=== PATIENT | female | born 1985 | race Caucasian/White ===

== ENCOUNTER → 2017-05-13 | Outpatient (CLI) | payer MEDICAID ==
[~2017-05-13] MED LIST: ABILIFY2 MG PO; ACETAMINOPHEN500 M3 PO; ACYCLOVIR800 MG PO; ALLEGRA 180MG180 MG OR; ALLERGY MED PO; ATIVAN0.5 MG NG; BENTYL10 MG OR; BENZTROPINE 1MG1 MG PO; BENZTROPINE1 MG PO; BROMFED DM 480480 ML PO; BUSPIRONE HCL10 MG PO; CETIRIZINE10 MG PO; CHLORPROMAZINE25 MG PO; CIPRO 500MG TA500 MG PO; CIPROFLOXACIN500 M2 PO; CIPROFLOXACIN500 MG PO; CLARITIN 10MG T10 MG PO; CYCLOBENZAPRINE10 M1 PO; CYCLOBENZAPRINE10 M3 PO; CYCLOBENZAPRINE10 MG PO; CYMBALTA60 MG PO; DEPAKOTE ER250 MG PO; DICLOFENAC 50MG50 MG PO; DICYCLOMINE HYD20 MG PO; DOXYCYCLINE MO100 MG PO; EC NAPROSYN500 MG PO; FERATAB300 MG PO; FERROUS GLUCON324 MG PO; FERROUS SULFAT325 M2 PO; FIORICET1 CAP PO; FLAGYL 500MG.500 MG PO; FLAGYL500 MG PO; FLEXERIL10 MG PO; FLUOXETINE20 MG PO; FOLBIC RF1 TAB PO; FOLIC ACID 1MG T1 MG PO; HYDROCODONE-APA1 TA1 PO; HYDROCODONE1 TABLET PO; HYOSCYAMINE0.125 M1 SL; IMITREX100 MG PO; INDOCIN25 MG PO; IRON TABLETS325 MG PO; KEFLEX 500MG.500 MG PO; KEPPRA 500 MG500 MG PO; KEPPRA500 MG PO; KETOROLAC 10MG10 MG PO; LEVAQUIN500 MG PO; LIBRAX 5 MG-2.51 CAP PO; LORATADINE 10MG10 M1 PO; LORTAB 5/500 501 TAB PO; MACROBID 100MG100 MG PO; MECLIZINE HYDRO25 MG PO; MELOXICAM15 MG PO; METHYLPRED DP4 MG PO; METOCLOPRAMIDE10 M2 PO; MONISTAT 7 COM1 EACH VG; NAPROSYN 500MG500 MG PO; NEXIUM40 MG PO; OMNICEF 300 MG300 MG PO; ONDANSETRON HYDR4 MG PO; ONDANSETRON4 M1 PO; PERCOCET 5/3251 EACH PO; PHENAZOPYRIDIN200 M3 PO; PHENAZOPYRIDIN200 MG PO; PHENERGAN 25MG.25 M1 PO; PHENERGAN RC; PHENERGAN25 M3 PO; PREDNISONE50 MG PO; PRENATAL 1 PLUS1 TAB PO; PRENATAL1 TA1 PO; PRILOSEC20 MG PO; PROMETHAZINE25 MG PR; PYRIDIUM 200MG200 MG PO; REGLAN 5MG TABLE5 MG PO; SUMATRIPTAN SUC50 MG PO; SYMBYAX 25 MG-61 CAP PO; TESSALON PERLE200 MG PO; TRAMADOL 50MG T50 MG PO; TRAMADOL50 M1 PO; TREXIMET 500 MG1 TAB PO; VIBRAMYCIN 100100 MG PO; VITAMIN D2000 I1 PO; VITAMIN D31000 IU PO; ZANTAC 300300 MG PO; ZOFRAN4 MG PO; ZYPREXA5 MG PO
--- NOTE | 2017-05-13 15:08 | RADIOLOGY REPORT PS360 ---
ABDOMEN-FLAT UPRIGHT HISTORY: RLQ PAIN ORDERING PHYSICIAN: Laura Monson MD PATIENT AGE: 31 years COMPARISON: None FINDINGS: Nonspecific nonobstructed bowel gas pattern. Surgical clips right upper quadrant. Small calcific density overlies the mid to lower pole the left kidney at 3 to 4 mm and may represent a small left renal stone. CT may confirm. Otherwise negative. IMPRESSION: Possible left nephrolithiasis.
== END ==
LOC: RAD 14:23
DX: R10.31 Right lower quadrant pain (principal)

== ENCOUNTER → 2017-07-10 | Outpatient (CLI) | payer MEDICAID ==
[~2017-07-10] MED LIST changes: +DIFLUCAN150 MG PO; +TERAZOL 7 VAG C45 GM VG
[2017-07-10 11:34] LABS: HEMOGLOBIN 12.4 g/dL (12.2-16.2); LYMPH # 2.1 K/mm3 (0.7-4.5); LYMPH % 19.5 % (10-50.0)
[2017-07-10 13:53] LABS: BUN 12 mg/dL (7-18)
[2017-07-10 13:54] LABS: GFR (ESTIMATED) 64 ML/MIN (59-)
== END ==
LOC: RAD 10:47
PROVIDERS: Surgery
DX: R10.10 Upper abdominal pain, unspecified (principal)

== ENCOUNTER → 2017-07-12 | Outpatient (CLI) | payer MEDICAID ==
--- NOTE | 2017-07-12 13:59 | RADIOLOGY REPORT PS360 ---
CT ABD PELVIS W/ CONTRAST COMPARISON: CT scan abdomen pelvis 10/26/2016 HISTORY: Upper abdominal pain TECHNIQUE: Multiaxial scans obtained from hemidiaphragms to the pelvic floor and were performed with oral contrast only. Sagittal and coronal reformats were evaluated as well. FINDINGS: The lower lung becker are clear. The liver spleen stomach and pancreas appear normal. There has been a previous cholecystectomy. The adrenal glands are normal. The kidneys are normal size. The images of the abdomen are degraded due to the patient's large size but there may be a tiny nonobstructing calculus left kidney. There is no obstructive uropathy of either kidney. Small bowel appears normal. There is a small umbilical hernia containing fat only measuring 3.2 cm at the mouth. I do not definitely identify the appendix but there are no pericecal inflammatory changes. There is moderate amount stool in ascending and transverse colon. The uterus is normal. Urinary bladder is partially decompressed. Is no free fluid in the pelvis. IMPRESSION: Small umbilical hernia containing fat only, no acute abdominal or pelvic pathology identified.
== END ==
LOC: RAD 10:05
DX: R10.10 Upper abdominal pain, unspecified (principal); R10.2 Pelvic and perineal pain
CPT/HCPCS: Q9967